=== PATIENT | female | born 1940 | race African-American/Black ===

== ENCOUNTER 2016-08-30 07:35 | Inpatient (IN) | payer BC ==
--- NOTE | ~2016-08-30 | HP ---
History And Physical [facility] [address] [place]. [address] NAME: ANDERS REDDY : 39 STATUS : ADM IN PAT#: [id number] AGE: 76 ADM/REG DATE : 08/30/16 MR#: [id number] REPORT SERV DATE: 08/30/16 DICTATED BY: ANTONIO SORENSEN III DATE: 08/30/16 REPORT STATUS : Draft TRANSCRIBED BY: GEETA DATE: 08/30/16 DATE OF ADMISSION: 08/30/2016 HISTORY OF PRESENT ILLNESS: Ms. Anders Reddy is a 76-year-old female from [place], [place] transferred from [facility] for evaluation of symptomatic bradycardia. The patient had been in her usual state of health until approximately 2 months prior to this admission. At that time, the patient noted the onset of fatigue. The patient did well until approximately 6 weeks prior to this admission. At that time, the patient noted the onset of irregular palpitations lasting up to two hours in duration. The patient denied any associated symptoms. The patient denied precipitating factors. The patient denied relieving factors. The patient has noted palpitations at rest. The patient denied being woken from sleep by palpitations. The patient underwent a TCAT from 07/16 to 08/06. That study demonstrated that the patient's "palpitations" correlated with supraventricular premature complexes, ventricular premature complexes, and paroxysmal supraventricular tachycardia. The patient did well until the day of admission. At that time, the patient was awoken with dizziness, lightheadedness, presyncope, and fatigue. The episode lasted approximately 10 minutes in duration. Approximately 20 minutes later, the patient experienced a second similar episode. The patient subsequently drove herself to the [facility] Emergency Room. The patient's initial heart rate was 45 beats per minute with a blood pressure of 146/70 mmHg. The patient's troponin I level was 0.02. A 12-lead electrocardiogram reportedly demonstrated sinus rhythm and no acute changes. The patient was subsequently transferred to [facility] for further evaluation and therapy. The patient has been told that she has a cardiac murmur. The patient denied dyspnea on exertion, orthopnea, paroxysmal nocturnal dyspnea, sacral edema, pedal edema, chest pain, syncope, hip claudication, and lower extremity claudication. The patient has no history of rheumatic fever. The patient's only documented coronary artery disease risk factor was hypertension. PAST MEDICAL HISTORY: 1. Hypertension. 2. Arthritis. 3. Nocturnal myoclonus. OPERATIVE PROCEDURES: 1. Status post appendectomy. 2. Status post section, 2 occasions. ALLERGIES: NONE. MEDICATIONS: 1. Lisinopril 20 mg p.o. q.a.m. 2. Amlodipine 5 mg p.o. at bedtime. 3. B Complex vitamins 1 p.o. daily. 4. Cholecalciferol 2000 units p.o. q.a.m. 5. Lutein 20 mg p.o. q.a.m. History And Physical [address] [address] NAME: ANDERS REDDY : 39 STATUS : ADM IN [facility]#: [id number] AGE: 76 ADM/REG DATE : 08/30/16 MR#: [id number] REPORT SERV DATE: 08/30/16 DICTATED BY: ANTONIO SORENSEN III DATE: 08/30/16 REPORT STATUS : Draft TRANSCRIBED BY: GEETA DATE: 08/30/16 6. Probiotic 1 p.o. q.a.m. 7. Fish oil 1 p.o. daily. FAMILY HISTORY: Positive for hypertension, stroke, diabetes mellitus, breast cancer, arthritis, and mental illness. Negative for myocardial infarction, seizures, kidney disease, liver disease, and anemia. SOCIAL HISTORY: The patient denied alcohol and tobacco use. PHYSICAL EXAMINATION: GENERAL: Physical examination demonstrated an alert, older female, in no acute distress. VITAL SIGNS: Demonstrated a temperature of 98.1, respiratory rate of 18 breaths per minute, and a blood pressure of 164/73 mmHg with a heart rate of 66 beats per minute. SKIN: Warm and dry. There was a well-healed, midline, infraumbilical, abdominal surgical scar. NECK: Supple and nontender. There was decreased range of motion. There was no appreciable lymphadenopathy or thyromegaly. There was no jugular venous distention at 90 degrees. There were no carotid bruits. BACK: Examination of the back demonstrated no spinal or costovertebral angle tenderness. CHEST: Examination of the chest demonstrated that it was clear to auscultation. CARDIAC: Examination demonstrated a nondisplaced apical impulse. There was a regular rhythm and rate. There was a grade II/ systolic crescendo-decrescendo murmur heard best at the left upper sternal border and radiating to the right upper sternal border and apex. There was a grade II/ diastolic decrescendo murmur heard best at the right and left upper sternal borders. There was no other murmur, rub, gallop, or mid systolic click. There were no thrills or heaves. ABDOMEN: Examination of the abdomen demonstrated that it was mildly obese, soft, and nontender. There was no appreciable hepatosplenomegaly or masses. Bowel sounds were intact. There were no abdominal or femoral bruits. BACK: Examination of the extremities demonstrated they were symmetrical. There was decreased range of motion. There was no cyanosis, clubbing, or edema. Pulses were 2+ and equal at the radial, dorsalis pedis, and posterior tibial arteries. The right femoral pulse was 2+ and the left femoral pulse was 1+. ASSESSMENT: Ms. Anders Reddy is a 76-year-old female with one other risk factor for coronary atherosclerotic disease (i.e., hypertension) and symptomatic paroxysmal supraventricular tachycardia, who now presents with symptomatic bradycardia. The patient is admitted for further evaluation and therapy. /GEETA Antonio Sorensen III, M.D., [facility], [facility] History And Physical [address] [address] NAME: ANDERS REDDY : 39 STATUS : ADM IN PAT#: [id number] AGE: 76 ADM/REG DATE : 08/30/16 MR#: [id number] REPORT SERV DATE: 08/30/16 DICTATED BY: ANTONIO SORENSEN III DATE: 08/30/16 REPORT STATUS : Draft TRANSCRIBED BY: GEETA DATE: 08/30/16 / [id number] CC: Antonio Sorensen III, M.D., [facility], [facility] Isaiah Whitney Jr. D.OMary
--- NOTE | ~2016-08-30 | PUL ---
[address] [address] NAME: ANDERS REDDY : 39 STATUS : DIS IN PAT#: [id number] AGE: 76 ADM/REG DATE : 08/30/16 MR#: [id number] REPORT SERV DATE: 09/03/16 DICTATED BY: ISAAC FAIRBANKS DATE: 09/01/16 REPORT STATUS : Draft TRANSCRIBED BY: MODL DATE: 09/01/16 PULMONARY FUNCTION TEST REFERRING PHYSICIAN: Cody Sorensen M.D., [facility], [facility] Oximetry was performed on room air. Total valid sampling time was 6 hours and 2 minutes. Saturations were less than 88% for 0 seconds. INTERPRETATION: Normal oximetry test while on room air. PATRICK/GEETA Isaac Fairbanks M.D. / [id number] CC: Cody Sorensen III, M.D., [facility], [facility] Isaiah Whitney Jr., D.O.
--- NOTE | ~2016-08-30 | CN ---
Consultation Report [facility] [address] [place]. [address] NAME: ANDERS REDDY : 39 STATUS : DIS IN PAT#: [id number] AGE: 76 ADM/REG DATE : 08/30/16 MR#: [id number] REPORT SERV DATE: 09/03/16 DICTATED BY: ISAAC FAIRBANKS DATE: 08/31/16 REPORT STATUS : Draft TRANSCRIBED BY: GEETA DATE: 08/31/16 CONSULTATION REPORT DATE OF CONSULTATION: Dear Cody Sorensen: Thank you for requesting my opinion regarding evaluation and management of Ms. Anders Reddy's incidental finding of a 3.6 x 5.5 cm echo-dense mass in the posterior left ventricle. Ms. Reddy is an extremely pleasant 76-year-old female, with a significant past medical history of hypertension, arthritis, nocturnal myoclonus, and headaches, who presented to [facility] with palpitations and symptomatic bradycardia. 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 At this point, a CT scan of the chest has been ordered, but not completed. She states that she has no history of fevers chills, night sweats, nausea, vomiting, diarrhea, constipation, bilateral lower leg swelling, hemoptysis, weight gain or weight loss. She denies firmly any history of shortness of breath at baseline. She does have typical exertional dyspnea with extreme exertion which usually recovers with rest. She denies any associated symptoms. REVIEW OF SYSTEMS: A detailed 14-point review of systems was completed. Pertinent positives and negatives are listed above. PAST MEDICAL HISTORY: 1. Hypertension. 2. Arthritis. 3. Nocturnal myoclonus. PAST SURGICAL HISTORY: 1. Appendectomy. 2. section. ALLERGIES: NO KNOWN DRUG ALLERGIES. HOME MEDICATIONS: Reviewed and located in the paper chart. FAMILY HISTORY: Hypertension, stroke, diabetes, breast cancer, arthritis, and mental illness. SOCIAL HISTORY: The patient denies any significant history of alcohol or illicit drug abuse. She is a lifelong nonsmoker. Consultation Report [facility] [address] [place]. [address] NAME: ANDERS REDDY : 39 STATUS : DIS IN PAT#: [id number] AGE: 76 ADM/REG DATE : 08/30/16 MR#: [id number] REPORT SERV DATE: 09/03/16 DICTATED BY: ISAAC FAIRBANKS DATE: 08/31/16 REPORT STATUS : Draft TRANSCRIBED BY: GEETA DATE: 08/31/16 PHYSICAL EXAMINATION: VITAL SIGNS: Afebrile, T-current of 97.6, pulse of 75, respiratory rate of 18, room air 98%, blood pressure of 198/89. GENERAL: In no acute distress. Able to communicate in full paragraphs at a time. HEENT: Normocephalic and atraumatic. Pupils are equal, round, and reactive to light and accommodation. Posterior oropharynx is clear. NECK: No JVD. No LAD. Trachea midline. CARDIOVASCULAR: Regular rate and rhythm. S1, S2 present. LUNGS: Clear to auscultation bilaterally. ABDOMEN: Nontender, nondistended, and soft. Positive bowel sounds. EXTREMITIES: No clubbing, cyanosis, or edema. SKIN: No new rashes, lesions, or ulcers. PSYCHIATRIC: Alert and oriented x3. Appropriate mood and affect. Appropriate insight and judgment. NEUROLOGIC: 5/5 strength in upper and lower extremities. Cranial nerves II through XII intact. Gait not tested. DTRs not performed. LABORATORY DATA: White count of 5, hemoglobin of 11, platelet count of 354, eosinophils elevated at 1.19. Chemistries demonstrate a normal creatinine of 0.87. IMAGING: Chest CT without contrast has been ordered, but not completed. ASSESSMENT AND PLAN: Ms. Anders Reddy is an extremely pleasant 76-year-old female, with a significant past medical history of arthritis, heart palpitations, and headaches, who presents to [facility] with symptomatic bradycardia. She underwent an echocardiogram on 08/30/2016, that demonstrated of a 3.6 x 5.5 cm echo-dense mass posterior to the left ventricle concerning for a pulmonary tumor. The patient also has notable peripheral blood eosinophilia. At this point, Ms Anders Reddy needs an appropriate imaging. A CT scan of the chest has been ordered. I will amend the order to include contrast and navigation protocol. RECOMMENDATION: A summary of my recommendations are as follows: 1. A CT chest with contrast to rule out pulmonary embolism and navigation protocol. 2. Further recommendations pending imaging studies. Thank you for allowing me to participate in Ms. Reddy's care. PATRICK/GEETA Isaac Fairbanks M.D. Consultation Report [address] [place]. [address] NAME: ANDERS REDDY : 38 STATUS : DIS IN PAT#: [id number] AGE: 76 ADM/REG DATE : 08/30/16 MR#: [id number] REPORT SERV DATE: 09/03/16 DICTATED BY: ISAAC FAIRBANKS DATE: 08/31/16 REPORT STATUS : Draft TRANSCRIBED BY: GEETA DATE: 08/31/16 / [id number] CC: Cody Sorensen III, M.D., [facility], [facility] Isaiah Whitney Jr., D.OMary
[2016-08-30] MEDS ORDERED: PRIN20 PO (11:14)
[2016-08-30] MEDS ORDERED: NORV5 PO (11:14)
[2016-08-30] MEDS ORDERED: VITAMIN D31000 UNIT PO (11:15)
[2016-08-30] MEDS ORDERED: LUTEIN20 MG PO (11:16)
[2016-08-30] MEDS ORDERED: VITAMIN B PO (11:16)
[2016-08-30] MEDS ORDERED: FISH OIL PO (11:17)
[2016-08-30] MEDS ORDERED: PROBIOTIC PO (11:17)
[2016-08-31 04:43] LABS: BASOPHILS 0.9 %; BASOPHILS ABSOLUTE 0.05 10/3/uL (0.0-0.16); EOSINOPHILS 22.3 %; EOSINOPHILS ABSOLUTE 1.19 10/3/uL (0.0-0.53); HEMATOCRIT 33.3 % (36.0-48.0); HEMOGLOBIN 11.1 g/dL (12.0-16.0); LYMPHOCYTES 33.7 %; MEAN CORPUS HGB CONC 33.3 g/dL (32.0-36.0); MEAN CORPUSCULAR HEMOGLOB 31.4 pg (26.0-34.0); MEAN CORPUSCULAR VOLUME 94.1 fL (80-100); MEAN PLATELET VOLUME 9.1 fL (9.2-13.0); MONOCYTES 8.8 %; MONOCYTES ABSOLUTE 0.47 10/3/uL (0.21-1.20); NEUTROPHILS 34.3 %; NEUTROPHILS ABSOLUTE 1.83 10/3/uL (2.02-8.40); PLATELET COUNT 354 10/3/uL (150-400); RBC DISTRIBUTION WIDTH 13.3 % (12.0-16.0); RED CELL COUNT 3.54 10/6/uL (4.0-5.6); WHITE BLOOD CELLS 5.3 10/3/uL (4.5-10.5)
[2016-08-31 04:54] LABS: MANUAL DIFF NO %
[2016-08-31 10:21] LABS: A/G RATIO 0.8 (0.7-1.9); ALBUMIN 3.8 G/DL (3.5-5.0); ALKALINE PHOSPHATASE 75 U/L (45-117); BUN (BLOOD UREA NITROGEN) 19 MG/DL (6-23); CALCIUM, SERUM 9.1 MG/DL (8.5-10.4); CHLORIDE, SERUM 108 MMOL/L (96-112); CO2 (CARBON DIOXIDE) 27 MMOL/L (24-34); CREATININE 0.87 MG/DL (0.55-1.02); GFR AFRICAN AMERICAN 74 ML/MIN (>=60); GFR NON AFRICAN AMERICAN 64 ML/MIN (>=60); GLOBULIN 4.6 G/DL (2.5-4.1); GLUCOSE, SERUM 69 MG/DL (60-99); POTASSIUM, SERUM 4.1 MMOL/L (3.5-5.3); SGOT(AST) 17 U/L (5-40); SGPT(ALT) 20 U/L (5-65); SODIUM, SERUM 142 MMOL/L (135-148); TOTAL BILIRUBIN 0.6 MG/DL (0-1.2); TOTAL PROTEIN 8.4 G/DL (6.0-8.5)
[2016-09-01 05:35] LABS: BUN (BLOOD UREA NITROGEN) 22 MG/DL (6-23); CALCIUM, SERUM 8.9 MG/DL (8.5-10.4); CHLORIDE, SERUM 108 MMOL/L (96-112); CO2 (CARBON DIOXIDE) 26 MMOL/L (24-34); GFR AFRICAN AMERICAN 71 ML/MIN (>=60); GFR NON AFRICAN AMERICAN 62 ML/MIN (>=60); POTASSIUM, SERUM 4.6 MMOL/L (3.5-5.3); SODIUM, SERUM 143 MMOL/L (135-148)
[2016-09-01 05:37] LABS: GLUCOSE, SERUM 87 MG/DL (60-99)
[2016-09-01 06:31] LABS: BASOPHILS 0.6 %; BASOPHILS ABSOLUTE 0.04 10/3/uL (0.0-0.16); EOSINOPHILS 16.4 %; EOSINOPHILS ABSOLUTE 1.02 10/3/uL (0.0-0.53); HEMATOCRIT 34.1 % (36.0-48.0); HEMOGLOBIN 11.1 g/dL (12.0-16.0); LYMPHOCYTES 24.7 %; LYMPHOCYTES ABSOLUTE 1.54 10/3/uL (0.67-4.30); MEAN CORPUS HGB CONC 32.6 g/dL (32.0-36.0); MEAN CORPUSCULAR HEMOGLOB 30.5 pg (26.0-34.0); MEAN CORPUSCULAR VOLUME 93.7 fL (80-100); MEAN PLATELET VOLUME 9.2 fL (9.2-13.0); MONOCYTES 11.7 %; MONOCYTES ABSOLUTE 0.73 10/3/uL (0.21-1.20); NEUTROPHILS 46.6 %; PLATELET COUNT 374 10/3/uL (150-400); RBC DISTRIBUTION WIDTH 13.3 % (12.0-16.0); RED CELL COUNT 3.64 10/6/uL (4.0-5.6); WHITE BLOOD CELLS 6.2 10/3/uL (4.5-10.5)
[2016-09-01 06:32] LABS: MANUAL DIFF NO %
[2016-09-01] MEDS ORDERED: NORV10 PO (17:03)
== END 2016-09-01 17:55 | disposition home or self-care (01) | DRG 310 ==
LOC: 6NO 07:35
PROVIDERS: Internal Medicine Cardiovascular Disease
DX: R00.1 Bradycardia, unspecified (principal); G25.3 Myoclonus; I35.1 Nonrheumatic aortic (valve) insufficiency; J44.9 Chronic obstructive pulmonary disease, unspecified; I49.3 Ventricular premature depolarization; I47.1 Supraventricular tachycardia; I49.1 Atrial premature depolarization; I10 Essential (primary) hypertension; Z82.49 Family history of ischemic heart disease and other diseases of the circulatory system; Z82.3 Family history of stroke; Z83.3 Family history of diabetes mellitus; Z80.3 Family history of malignant neoplasm of breast; Z81.8 Family history of other mental and behavioral disorders; J98.6 Disorders of diaphragm
CPT/HCPCS: 71275; 76000; 80048; 80053; 83880; 84443; 85025; 90662; 93005; 93306; 94762; A9270-GY; G0008; J0360